=== PATIENT | female | born 1955 | race Caucasian/White ===

== ENCOUNTER 2017-10-19 13:20 | Emergency (ER) | payer BC ==
[2017-10-19 14:02] VITALS: BP 147/65
--- NOTE | 2017-10-19 14:19 | UC ---
Eye Complaint HPI - History of Current Complaint Chief Complaint: Sathya Stated Complaint: POSS PINK EYE Time Seen by Provider: 10/19/17 14:01 - Allergies/Home Medications Allergies/Adverse Reactions: Allergies Allergy/AdvReac Type Severity Reaction Status Date / Time Isosorbide Nitrate Allergy DIZZY, Verified 10/23/16 09:37 [Isosorbide] QUEAZY, ANXIOUS Nitroglycerin AdvReac Dizziness Verified 10/19/17 13:57 PMH/Surg Hx/FS Hx/Imm Hx - Additional Past Medical History Additional PMH: c/o right pink eye for one day, her son had same symptoms, states she had eye discharge this morning and mild pain. States vision is mildly blurred. Denies fever, states that for the past 3 days she has had mild cough and sore throat with mild nasal d/c - Surgical History Surgical History: Yes Surgery Procedure, Year, and Place: open heart surgery 09/2014,. R knee replacement - Social History Alcohol Use: Rare Substance Use Type: None Smoking Status (MU): Never Smoked Tobacco - Immunization History Most Recent Influenza Vaccination: 2015 Most Recent Tetanus Shot: POSSIBLY WITHIN LAST 10 YEARS Most Recent Pneumonia Vaccination: NONE Review of Systems All Other Systems Reviewed And Are Negative: Yes Physical Exam Triage Information Reviewed: Yes Vital Signs: Initial Vital Signs Temp 97.5 F 10/19/17 13:58 Pulse 93 10/19/17 13:58 Resp 16 10/19/17 13:58 BP 147/65 10/19/17 13:58 Pulse Ox 100 10/19/17 13:58 Vital Signs Reviewed: Yes Eyes: Positive: Conjunctiva Inflamed - right eye conjunctival injection more on nasal conjunctiva, no d/c ENT: Positive: TMs normal Neck exam: Normal Respiratory Exam: Normal Cardiovascular Exam: Normal Eye Complaint Course/Dx - Course Course Of Treatment: start antibiotic eye drops, irrigation with normal saline - Differential Dx/Diagnosis Provider Diagnoses: right eye conjunctivitis Discharge - Discharge Plan Condition: Stable Disposition: HOME Patient Education Materials: Conjunctivitis (ED) Referrals: Castro Braun MD [Primary Care Provider] -
== END 2017-10-19 14:37 | disposition home or self-care (01) ==
LOC: UCEAST 13:20
DX: H10.9 Unspecified conjunctivitis (principal); Z88.8 Allergy status to other drugs, medicaments and biological substances
CPT/HCPCS: 99212; G0463